=== PATIENT | male | born 1960 | race Caucasian/White ===

== ENCOUNTER → 2019-12-12 | Outpatient (CLI) | payer BC ==
[~2019-12-12] MED LIST: ALDACTONE50 MG PO; AMBIEN 10 MG TA10 MG PO; ASPIR 8181 M1 PO; BENICAR20 MG PO; CRESTOR40 MG PO; DILTIAZEM 24HR300 M2 PO; HYDROCODONE-AP1 EAC6 PO; IBUPROFEN 400400 M2 PO; IMDUR 30 MG TAB30 M1 PO; IRON159 MG PO; LASIX 20 MG TAB20 MG PO; LEXAPRO 10 MG T10 M1 PO; METFORMIN HCL500 MG PO; NEXIUM40 MG PO; OLANZAPINE10 MG PO; OXYCONTIN10 M1 PO; PERCOCET PO; QVAR8.7 G1 INH; SPIRIVA18 MCG INH; TRAZODONE HCL100 MG PO; UNICOMPLEX M TA1 TA1 PO; VANCOMYCIN1.5 GM/150 IV; XANAX 0.25 MG0.25 MG PO; XARELTO10 MG PO; ZOLOFT100 MG PO
== END ==
LOC: M.SLEEPLAB 20:59
PROVIDERS: ATTEND Pediatrics
DX: G47.33 Obstructive sleep apnea (adult) (pediatric) (principal)